=== PATIENT | female | born 1945 | race Caucasian/White ===

== ENCOUNTER → 2020-05-20 12:23 | Outpatient (CLI) | payer MEDICARE, OTHER, SELFPAY | PROVIDERS: Referring Provider Otolaryngology; Visit Provider Otolaryngology | DX: Z11.59 Encounter for screening for other viral diseases (principal) | CPT/HCPCS: 87635; G2023; U0003 ==

== ENCOUNTER 2020-08-03 05:49 | Day surgery (SDC) | payer MEDICARE, OTHER, SELFPAY ==
--- NOTE | 2020-07-28 10:06 | EKG12_ITS ---
Test Reason : PRE OP Blood Pressure : / mmHG Vent. Rate : 073 BPM Atrial Rate : 073 BPM P-R Int : 174 ms QRS Dur : 084 ms QT Int : 374 ms P-R-T Axes : 021 008 037 degrees QTc Int : 412 ms Normal sinus rhythm Normal ECG Confirmed by LLOYD GONZALES, ROSANGELA ([id number]), business editor HANNAH CHAWLA ([id number]) on 07/29/2020 1:06:49 PM Referred By: Loernzo Tellez Confirmed By:ROSANGELA DESAI MD
[2020-07-28 11:49] LABS: Anion Gap 3 (5-15); BUN 12 mg/dL (7-18); BUN/Creat Ratio 22.1 RATIO (10-20); Calcium,Total 9.3 mg/dL (8.5-10.1); Chloride 104 mmol/L (98-107); Creatinine, Serum 0.54 mg/dL (0.55-1.02); EST Glomerular Filtration Rate 117 mL/min (>60); Est Glom Filt Rate - Afr Amer 141 mL/min (>60); Glucose 84 mg/dL (74-106); Potassium 3.8 mmol/L (3.5-5.1); Sodium Level 139 mmol/L (136-145)
[2020-08-03 06:21] VITALS: BP 167/81; PULSE 74; RESP 16; TEMP 36.7; O2SAT 98; BMI 29.7
[2020-08-03] MEDS: Lactated Ringers 1,000 ML 100 ML IV ×2 (06:27→11:30)
--- NOTE | 2020-08-03 07:30 | MASS_PTH ---
PATIENT: MAHESH HOLDER [place] [facility] [id number] AGE/SX: 74/F ROOM: RE08/03/[address]: Dr. Benigno Tellez MD : [id number] BED: DIS: 08/03/2020 SPEC #: [id number] RECD: 08/03/20 11:57 STATUS: JESUS PORTER #: [id number] SUSAN: 08/03/20 07:[address]: Benigno Tellez DEPT: SURGICAL PATHOLOGY RECD BY: Octavio Root ENTERED: 08/03/20 12:16 SP TYPE: Mass OTHR DR: Dr. Jose Raul Holland MD Tissues: Ear, NOS Procedures: Surgery Specimen Level III HEADER OPERATION: Mastoidectomy, canal wall down PRE-OP DIAGNOSIS: Disorder of Eustachian tube, cholesteatoma of attic right ear TISSUE SUBMITTED: Middle ear mass right ear MICROSCOPIC DIAGNOSIS Middle ear mass right ear: Consistent with cholesteatoma. PAUL:riley 08/04/20 MICROSCOPIC DESCRIPTION Slides are reviewed. GROSS DESCRIPTION Received in fixative is one container labeled with the patient's name and designated middle ear mass right ear. The specimen consists of multiple irregular fragments of villarreal-white to pink congested soft tissue that in aggregate measure 0.7 x 0.6 x 0.1 cm. The specimen is totally submitted in one cassette. / PAUL:riley 08/03/20 TC:5 CPT: 02351
[2020-08-03] MEDS: Ciprofloxacin 0.3% 2.5ml Bottle 1 DRP (09:54)
[2020-08-03] MEDS: Epinephrine (1 mg/ml) 1 MG/ML VIAL (09:54)
[2020-08-03] MEDS: Neomycin/Bacitracin/Polymyxin Ointment 1 APPLIC (11:21)
--- NOTE | 2020-08-03 11:30 | PCM.DC ---
You will use the following diet at home:: No restrictions Your food should be the consistency of: Regular Discharge Activity: May not drive while taking narcotic pain medications. Call your doctor if your incision/area has: Increased Pain/ Swelling Allergies/Adverse Reactions: Allergies acetaminophen [From Darvocet-N] Adverse Reaction (Verified 07/26/20 10:16) Nausea/Vom/Diarrhea propoxyphene [From Darvocet-N] Adverse Reaction (Verified 07/26/20 10:16) Nausea/Vom/Diarrhea Medications to take at Discharge Lansoprazole [Prevacid] 30 mg PO DAILY 07/26/20 Multivitamin [Once Daily] 1 ea PO DAILY 07/26/20 Orders to be completed after discharge: CORONAVIRUS 19, [facility] Time Frame: 07/26/20, Facility: [facility], Location: Laboratory Primary Care Physician: Jose Raul Holland MD [Primary Care Provider] - Test Results: Test results from this visit will be discussed in further detail at your follow-up appointment, if applicable. Please Follow Up With: Lorenzo Tellez MD When: 1 week
[2020-08-03 11:43] VITALS: BP 150/81; BP 167/81; PULSE 84; RESP 16; TEMP 36.5; O2SAT 96
[2020-08-03 12:00] VITALS: BP 163/89; BP 167/81; PULSE 85; RESP 16; O2SAT 97
[2020-08-03 12:15] VITALS: BP 160/81; BP 167/81; PULSE 84; RESP 16; O2SAT 96
--- NOTE | 2020-08-03 12:18 | PCM.OPRPT ---
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 canal wall down mastoidectomy. 2. fascia graft Type of Anesthesia:: General Description of Procedure: on the day of the procedure, after appropriate informed consent was obtained, the patient was brought to the operating room and placed in supine position on the operating table. she was placed under general endotracheal anesthesia by the anesthesiologist. the endotracheal tube was secured, facial nerve electrodes were placed on the right side. the right ear was injected with lidocaine/epinephrine and prepped/draped in sterile fashion. a 4cm postauricular incision was made with a 15 blade. the periosteum was exposed with the bovie. the temporalis fascia was exposed bluntly. the periosteum was opened in a T fashion along the temporal line as well as superior to inferior with the bovie. it was swept away with the milly periosteal elevator. the scutum was exposed. a cortical mastoidectomy was performed with a cutting mitali. the sigmoid sinus was immediately encountered and skeletonized. the antrum was entered and a large cholesteatoma was encountered. the mastoidectomy was completed to the dura superiorly, the canal wall anteriorly. the majority of the cholesteatoma was removed via the antrum with a gimmick. a posterior canal wall incision was made with a large round knife. the tympanic membrane was very retracted. all ossicles were intact. the tympanic membrane was attempted to be elevated from the promontory but was adherent. additional portions of the cholesteatoma were removed from the superior portion of the TM en bloc with that portion of the TM. given the chronicity of her disease and the severity, a canal wall down mastoidectomy was deemed necessary. the facial nerve was located with a julio césar mitali and stimulated for conformation. a thin layer of bone overlying the facial nerve was left intact. the posterior canal wall was lowered with a cutting mitali. the incus buttress was removed but all ossicles were left intact. the remainder of the cholesteatoma was removed with a menendez, scraping it off of the incus and portions of the medial middle ear space. superior and inferior canal wall incisions were made with a colorado tip bovie. a posteriorly based flap was created with the bovie and iris scissors. a 1cm area of conchal cartilage was removed, widening the canal. the flap was thinned. it was tacked to the periosteum posteriorly and laid into the canal. the canal was filled with neosporin. an jenise pack was placed and expanded. the postauricular skin was closed with 4-0 vicryl and 3-0 nylon. a jef was placed. the table was rotated 90 degrees toward the anesthesiologist. she was awoken from general anesthesia and transferred to the PACU in stable condition.
[2020-08-03 12:24] VITALS: BP 160/83; BP 167/81; PULSE 84; RESP 16; TEMP 36.3; O2SAT 100
[2020-08-03] MEDS: Acetaminophen/Codeine #3 Tablet 1 TABLET PO (12:45)
[2020-08-03 14:15] VITALS: BP 139/71; BP 167/81; PULSE 85; RESP 18; TEMP 36.7; O2SAT 94
== END 2020-08-03 14:37 | disposition home or self-care (01) ==
LOC: SDC 05:50 → AC 05:51
PROVIDERS: Anesthesiology; PCP Family Medicine; Referring Provider Otolaryngology; Visit Provider Otolaryngology
PROC: (CPT 69643; principal; 2020-08-03 07:00)
DX: H71.01 Cholesteatoma of attic, right ear (principal); K21.9 Gastro-esophageal reflux disease without esophagitis; H69.93 Unspecified Eustachian tube disorder, bilateral
CPT/HCPCS: 00120; 69646; 36415; 80048; 87635; 88304; 88305; 93005; C9803; J7120; J2405; U0003